=== PATIENT | female | born 1960 | race Caucasian/White ===

== ENCOUNTER 2020-02-13 08:41 | Emergency (ER) | payer BC ==
--- NOTE | 2020-02-13 09:21 | EDM.PDOC ---
ED HPI GENERAL MEDICAL PROBLEM - General Chief Complaint: Abdominal Pain Stated Complaint: ABDOMINAL PAIN Time Seen by Provider: 02/13/20 09:10 Source of Information: Reports: Patient, Family History Limitations: Reports: No Limitations - History of Present Illness INITIAL COMMENTS - FREE TEXT/NARRATIVE: 59-year-old female ate a large prime rib dinner last night, felt fine but overnight developed abdominal pain, bloating, bloody diarrhea and discomfort. No fevers or chills. She has no history of significant abdominal problems in fact has a colonoscopy scheduled for next week. She is getting a colonoscopy scheduled because over the past 1 to 2 months her stools have not been quite right. Onset: Unknown/Unsure (Symptoms started sometime overnight) Duration: Hour(s): (Abdominal cramping and bloody diarrhea for the past 8 hours) Location: Reports: Abdomen (Somewhat diffuse but mostly upper abdomen) Associated Symptoms: Reports: Malaise, Other (Nausea but no vomiting). Denies: Diaphoresis, Fever/Chills, Headaches, Shortness of Breath Abdomen Pain Score (Numeric/FACES): 8 - Related Data Allergies Allergy/AdvReac Type Severity Reaction Status Date / Time No Known Allergies Allergy Verified 02/13/20 08:59 Home Meds: Home Meds Aspirin [Low Dose Aspirin EC] 81 mg PO DAILY 02/13/20 [History] hydroCHLOROthiazide [Hydrochlorothiazide] 12.5 mg PO DAILY 02/13/20 [History] Past Medical History Cardiovascular History: Reports: Hypertension Gastrointestinal History: Reports: GERD, Hemorrhoids Genitourinary History: Reports: Renal Calculus Other Genitourinary History: kidney stone - 1997 [employer] History: Reports: Musculoskeletal History: Reports: Arthritis - Infectious Disease History Infectious Disease History: Reports: Chicken Pox - Past Surgical History HEENT Surgical History: Reports: Naso-Sinus Surgery, Tonsillectomy Female Surgical History: Reports: Lithotripsy/ESWL Social & Family History - Family History Family Medical History: No Pertinent Family History - Tobacco Use Tobacco Use Status *Q: Current Every Day Tobacco User Years of Tobacco use: 39 Packs/Tins Daily: 0.5 - Caffeine Use Caffeine Use: Reports: Coffee - Alcohol Use Days Per Week of Alcohol Use: 3 Number of Drinks Per Day: 2 Total Drinks Per Week: 6 - Recreational Drug Use Recreational Drug Use: No ED ROS GENERAL - Review of Systems Review Of Systems: See Below Constitutional: Reports: Malaise. Denies: Fever, Chills HEENT: Reports: No Symptoms Respiratory: Denies: Shortness of Breath Cardiovascular: Denies: Chest Pain GI/Abdominal: Reports: Abdominal Pain, Diarrhea, Hematochezia, Nausea. Denies: Melena, Vomiting Musculoskeletal: Reports: No Symptoms Skin: Reports: No Symptoms Neurological: Denies: Headache ED EXAM, GI/ABD - Physical Exam Exam: See Below Exam Limited By: No Limitations General Appearance: Alert, No Apparent Distress (Looks uncomfortable but not distressed) Eyes: Bilateral: Normal Appearance (Well-hydrated, no jaundice) Head: Atraumatic Respiratory/Chest: No Respiratory Distress, Lungs Clear Cardiovascular: Regular Rate, Rhythm. No: Tachycardia GI/Abdominal Exam: Normal Bowel Sounds (Very active bowel sounds), Soft, Tender (Some tenderness in the upper abdomen but no rebound or guarding) Extremities: Normal Inspection Neurological: Alert, Oriented Skin Exam: Warm, Dry. No: Cool, Cyanosis Course - Vital Signs Last Recorded V/S: Last Vital Signs Temp 98.8 F 02/13/20 09:00 Pulse 89 02/13/20 08:56 Resp 20 02/13/20 08:56 BP 121/92 H 02/13/20 08:56 Pulse Ox 97 02/13/20 08:56 - Orders/Labs/Meds Orders: Active Orders 24 hr Category Date Time Status CULTURE STOOL + SHIGATOX [RM] Stat Lab 02/13/20 09:39 Received Labs: Laboratory Tests 02/13/20 02/13/20 02/13/20 Range/Units 09:28 09:28 09:28 WBC 9.3 (4.5-11.0) K/uL RBC 5.10 (3.30-5.50) M/uL Hgb 15.9 H (12.0-15.0) g/dL Hct 47.8 (36.0-48.0) % MCV 94 (80-98) fL MCH 31 (27-31) pg MCHC 33 (32-36) % Plt Count 291 (150-400) K/uL Neut % (Auto) 66 (36-66) % Lymph % (Auto) 22 L (24-44) % [place] % (Auto) 10 H (2-6) % Eos % (Auto) 1 L (2-4) % Baso % (Auto) 1 (0-1) % Sodium 136 L (140-148) mmol/L Potassium 3.4 L (3.6-5.2) mmol/L Chloride 97 L (100-108) mmol/L Carbon Dioxide 32 (21-32) mmol/L Anion Gap 10.4 (5.0-14.0) mmol/L BUN 15 (7-18) mg/dL Creatinine 1.0 (0.6-1.0) mg/dL Est Cr Clr Drug Dosing 54.51 mL/min Estimated GFR (MDRD) 57 L (>60) Glucose 122 H (74-106) mg/dL Lactic Acid 1.8 (0.4-2.0) mmol/L Calcium 9.6 (8.5-10.1) mg/dL Total Bilirubin 0.4 (0.2-1.0) mg/dL AST 19 (15-37) U/L ALT 52 (12-78) U/L Alkaline Phosphatase 122 H (46-116) U/L Total Protein 7.8 (6.4-8.2) g/dL Albumin 3.7 (3.4-5.0) g/dL Globulin 4.1 H (2.3-3.5) g/dL Albumin/Globulin Ratio 0.9 L (1.2-2.2) Lipase 109 (73-393) U/L Meds: Medications Discontinued Medications Generic Name Dose Route Start Last Admin Trade Name Freq PRN Reason Stop Dose Admin Hydromorphone HCl 0.5 mg 02/13/20 09:49 02/13/20 10:01 Dilaudid IVPUSH 02/13/20 09:50 0.5 mg ONETIME ONE Administration Hydromorphone HCl 0.5 mg 02/13/20 11:05 02/13/20 11:15 Dilaudid IVPUSH 02/13/20 11:06 0.5 mg ONETIME ONE Administration Sodium Chloride 1,000 mls @ 1,000 mls/hr 02/13/20 09:30 02/13/20 09:33 Normal Saline IV 1,000 mls/hr ASDIRECTED JALEEL Administration Sodium Chloride 100 mls @ 3 mls/sec 02/13/20 10:45 02/13/20 11:06 Normal Saline IV 3 mls/sec ASDIRECTED JALEEL Administration Iopamidol 100 ml 02/13/20 10:39 02/13/20 11:06 Isovue-300 (61%) IV 02/13/20 10:40 100 ml ONETIME ONE Administration Sodium Chloride 10 ml 02/13/20 10:39 02/13/20 11:06 Saline Flush FLUSH 02/13/20 10:40 10 ml ONETIME ONE Administration - Re-Assessments/Exams Free Text/Narrative Re-Assessment/Exam: 02/13/20 09:33 Patient did have a small amount of bloody diarrhea while in the emergency room, this was collected for WBC, culture and C. difficile. Also merary a CBC, CMP and lactic acid and an IV started with normal saline hydration. 02/13/20 10:09 Patient needed 0.5 mg of IV Dilaudid for pain which gave her good relief. Labs returned to actually reassuring with normal white count, hemoglobin, normal lactic acid and lipase. The stool however did revealed many WBCs indicating an inflammatory source. A CT of the abdomen and pelvis with IV contrast was ordered. C. difficile is still pending. 02/13/20 12:21 IMPRESSION: 1. Findings suggestive of chronic colitis, with mild colonic wall thickening of the descending colon with trace pericolonic inflammation, suggesting a possible superimposed acute component. 2. Moderate hiatal hernia. 3. Hypoattenuating right hepatic lobe lesion, measuring 1.2 cm is incompletely characterized on this exam. Recommend comparison to prior exams if available. If no prior imaging is available for comparison recommend follow-up CT or MRI. C. difficile is negative Above findings were discussed with the patient. She will be placed on Cipro 500 mg twice daily for the next 10 days until culture results are available, and kept out of work for the next 3 days. Also given 10 doses of Percocet for extra pain control. Recommended just clear liquids for the next 48 hours and keep her appointment to set up the colonoscopy as planned. She can return sooner if worsening despite treatment. Departure - Departure Time of Disposition: 12:45 Disposition: Home, Self-Care 01 Clinical Impression: Colitis, Hematochezia Abdominal pain Qualifiers: Abdominal location: lower abdomen, unspecified Qualified Code(s): R10.30 - Lower abdominal pain, unspecified - Discharge Information Instructions: Colitis Referrals: PCP,None [Primary Care Provider] - Forms: ED Department Discharge Care Plan Goals: Take antibiotic twice daily, keep your follow-up appointments as scheduled and no work until at least of next week. Use stronger pain medication as needed, and stick with just clear liquids for the next 48 hours. Return if worsening despite treatment such as fever or increased pain. Sepsis Event Note (ED) - Evaluation Sepsis Screening Result: No Definite Risk - Focused Exam Vital Signs: Vital Signs Temp Pulse Resp BP Pulse Ox 02/13/20 09:00 98.8 F 02/13/20 08:56 98.8 F 89 20 121/92 H 97 - My Orders Last 24 Hours: My Active Orders 02/13/20 09:39 CULTURE STOOL + SHIGATOX [RM] Stat - Assessment/Plan Last 24 Hours: My Active Orders 02/13/20 09:39 CULTURE STOOL + SHIGATOX [RM] Stat
[2020-02-13] MEDS ORDERED: Sodium Chloride 0.9% 1,000 ML IV SCH (09:30)
[2020-02-13] MEDS ORDERED: HYDROmorphone 0.5 MG/0.5 ML Syringe IVPUSH ONE ×2 (09:49→11:05)
[2020-02-13] MEDS ORDERED: Iopamidol 612 MG/ML 500 ML Multipack Bottle IV ONE (10:39)
[2020-02-13] MEDS ORDERED: Sodium Chloride 0.9% 10 ML Syringe FLUSH ONE (10:39)
[2020-02-13] MEDS ORDERED: Sodium Chloride 0.9% 100 ML IV SCH (10:45)
--- NOTE | 2020-02-13 11:56 | CRLCT ---
INDICATION: Abdominal pain with bloody stool TECHNIQUE: CT abdomen and pelvis acquired with IV contrast. Approximately 100 cc of Isovue-300 contrast was administered intravenously. COMPARISON: None FINDINGS: The visualized portions of the lung bases are clear. A left breast implant is partially visualized. There is a moderate hiatal hernia. There is mild colonic thickening of the descending colon, with minimal surrounding fat stranding. Submucosal fat is seen diffusely throughout the colon. Negative for intraperitoneal free air fluid. The appendix is normal. There are a few scattered colonic diverticula. There is a 1.2 hypoattenuating lesion within the right hepatic, which is incompletely characterized. Additional subcentimeter hypoattenuating lesions are too small to fully characterize. The spleen, pancreas and adrenal glands are unremarkable. The kidneys enhance symmetrically without hydronephrosis. The bones are unremarkable. IMPRESSION: 1. Findings suggestive of chronic colitis, with mild colonic wall thickening of the descending colon with trace pericolonic inflammation, suggesting a possible superimposed acute component. 2. Moderate hiatal hernia. 3. Hypoattenuating right hepatic lobe lesion, measuring 1.2 cm is incompletely characterized on this exam. Recommend comparison to prior exams if available. If no prior imaging is available for comparison recommend follow-up CT or MRI. Dictated by Sofia Kendrick MD @ 02/13/2020 11:53:34 AM Please note that all CT scans at this facility use dose modulation, iterative reconstruction, and/or weight-based dosing when appropriate to reduce radiation dose to as low as reasonably achievable. Dictated by: Sofia Kendrick MD @ 02/13/2020 11:54:19 (Electronically Signed)
== END 2020-02-13 12:46 | disposition home or self-care (01) ==
LOC: JP.ED 08:41
DX: K52.9 Noninfective gastroenteritis and colitis, unspecified (principal); K92.1 Melena; I10 Essential (primary) hypertension; M19.90 Unspecified osteoarthritis, unspecified site; F17.210 Nicotine dependence, cigarettes, uncomplicated; Z79.899 Other long term (current) drug therapy; Z79.82 Long term (current) use of aspirin
CPT/HCPCS: 36415; 74177; 80053; 83605; 83690; 85025; 87046; 87493; 87899; 89055; 96374; 96376; 99285; J1170; J7030; Q9967; 99284

== ENCOUNTER 2020-08-20 16:56 | Emergency (ER) | payer BC ==
[2020-08-20] MEDS ORDERED: LORazepam 0.5 MG Tab PO ONE (18:44)
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
--- NOTE | 2020-08-21 12:46 | CR ---
Ribs 2V wo Chest Lt CLINICAL HISTORY: Left chest pain FINDINGS: There is no acute fracture within the ribs. No destructive changes are seen. There is no focal pleural thickening or obvious effusion. IMPRESSION: Negative left ribs.
== END 2020-08-20 20:27 | disposition home or self-care (01) ==
LOC: JP.ED 16:56
DX: S20.212A Contusion of left front wall of thorax, initial encounter (principal); F41.9 Anxiety disorder, unspecified; F45.8 Other somatoform disorders; N17.9 Acute kidney failure, unspecified; I10 Essential (primary) hypertension; M19.90 Unspecified osteoarthritis, unspecified site; Z72.0 Tobacco use; Z79.82 Long term (current) use of aspirin; Z79.899 Other long term (current) drug therapy; W50.0XXA Accidental hit or strike by another person, initial encounter
CPT/HCPCS: 36415; 71100; 80048; 84484; 85025; 93005; 99285; A9270

== ENCOUNTER 2020-09-04 08:48 | Emergency (ER) | payer OTHER, BC ==
--- NOTE | 2020-09-04 09:49 | EDM.PDOC ---
<Cindy Spangler - Last Filed: 09/04/20 09:42> ED HPI GENERAL MEDICAL PROBLEM - General Chief Complaint: General Stated Complaint: WORK COMP, CHEST TRAUMA Time Seen by Provider: 09/04/20 09:30 Source of Information: Reports: Patient, Family History Limitations: Reports: No Limitations - History of Present Illness INITIAL COMMENTS - FREE TEXT/NARRATIVE: 59 year old female with hx of anxiety, hyperventilation syndrome, and hypertension arrives with complaints of continued pain after traumatic chest injury at work. She reports that 08/15/20 she was elbowed in the left chest by a patient at her work who was falling. Pain in left chest since. She was seen in clinic and given a prednisone prescription to take for 5 days but reports that this has only made her symptoms worse. She report heart palpitations after taking prednisone so began "weening" herself off of the prednisone yesterday. She has not been working due to the pain but reports going to [employer] and dancing with that left arm causing exacerbation of the pain and did end up leaving the concert due to this. She reports that these symptoms are causing her so much stress that she is "suffering". She was given Ativan at her last visit that seemed to have helped her symptoms. Onset: Gradual Duration: Week(s):, Getting Worse Location: Reports: Chest Quality: Reports: Sharp Severity: Moderate Improves with: Reports: None Worsens with: Reports: None Context: Reports: Trauma Associated Symptoms: Reports: No Other Symptoms Left Chest Pain Score (Numeric/FACES): 5 - Related Data Allergies Allergy/AdvReac Type Severity Reaction Status Date / Time No Known Allergies Allergy Verified 08/20/20 17:47 Home Meds: Home Meds Aspirin [Low Dose Aspirin EC] 81 mg PO DAILY 02/13/20 [History] hydroCHLOROthiazide [Hydrochlorothiazide] 12.5 mg PO DAILY 02/13/20 [History] Metoprolol Succinate 50 mg PO DAILY 08/20/20 [History] Losartan [Cozaar] 25 mg PO DAILY 09/04/20 [History] Past Medical History Cardiovascular History: Reports: Hypertension Gastrointestinal History: Reports: GERD, Hemorrhoids Genitourinary History: Reports: Renal Calculus Other Genitourinary History: kidney stone - 1997 [employer] History: Reports: Musculoskeletal History: Reports: Arthritis - Infectious Disease History Infectious Disease History: Reports: Chicken Pox - Past Surgical History HEENT Surgical History: Reports: Naso-Sinus Surgery, Tonsillectomy Female Surgical History: Reports: Lithotripsy/ESWL Social & Family History - Family History Family Medical History: No Pertinent Family History - Tobacco Use Tobacco Use Status *Q: Current Every Day Tobacco User Years of Tobacco use: 40 Packs/Tins Daily: 0.5 - Caffeine Use Caffeine Use: Reports: None - Recreational Drug Use Recreational Drug Use: No ED ROS GENERAL - Review of Systems Review Of Systems: See Below Constitutional: Reports: No Symptoms. Denies: Fever, Chills, Malaise, Weakness HEENT: Reports: No Symptoms Respiratory: Reports: No Symptoms. Denies: Shortness of Breath, Wheezing, Cough Cardiovascular: Reports: Palpitations (palpitations started after 4 days of prednisone 40 mg daily. ). Denies: Chest Pain (chest wall pain on left lateral side post traumatic injury at work), Dyspnea on Exertion, Edema, Lightheadedness Endocrine: Reports: No Symptoms GI/Abdominal: Reports: No Symptoms. Denies: Abdominal Pain, Diarrhea, Nausea, Vomiting : Reports: No Symptoms Musculoskeletal: Reports: Other Skin: Reports: No Symptoms. Denies: Diaphoresis, Bruising, Rash, Wound Neurological: Reports: No Symptoms. Denies: Confusion, Dizziness, Headache, Numbness, Seizure, Weakness, Change in Speech, Gait Disturbance Psychiatric: Reports: No Symptoms Hematologic/Lymphatic: Reports: No Symptoms Immunologic: Reports: No Symptoms ED EXAM, GENERAL - Physical Exam Exam: See Below Free Text/Narrative:: Madison is resting on cart with at bedside. Her respirations are regular and non labored. skin is warm and dry. She is alert and oriented. Pain is reproducible with palpation left lower chest, laterally. No abdominal pain, no back pain, no other abnormalities on exam. Lungs are clear throughout. She is hyperverbal during assessment and does admit to a significant amount of anxiety over this incident. No pedal edema. No bruising noted to left chest/ back. Breast implant is intact. Exam Limited By: Other (anxiety) General Appearance: Alert, WD/WN, No Apparent Distress, Anxious Ears: Normal External Exam Nose: Normal Inspection, No Blood Throat/Mouth: Normal Inspection, Normal Voice, No Airway Compromise Head: Atraumatic. No: Facial Swelling, Facial Tenderness Neck: Normal Inspection, Non-Tender, Full Range of Motion Respiratory/Chest: No Respiratory Distress, Lungs Clear, Normal Breath Sounds. No: Respiratory Distress, Wheezing Cardiovascular: Normal Peripheral Pulses, Regular Rate, Rhythm, No Edema GI/Abdominal: Soft, Non-Tender. No: Distended, Guarding (Female) Exam: Deferred Rectal (Female) Exam: Deferred Back Exam: Normal Inspection, Full Range of Motion Extremities: Normal Inspection, Normal Range of Motion, Non-Tender, No Pedal Edema, Normal Capillary Refill Neurological: Alert, Oriented, Normal Cognition, Normal Gait, Normal Reflexes. No: Confused, Disoriented Psychiatric: Anxious Skin Exam: Warm, Dry, Intact, Normal Color, No Rash Lymphatic: No Adenopathy Course - Vital Signs Text/Narrative:: Discussed with this patient, the cause of her symptoms being her chest wall pain/ costochondritis, and anxiety. Patient agreeable to a week off of work and small ativan RX. Advised that she needs to establish care for follow up as this is her 3rd visit for this injury. Departure - Departure Disposition: Home, Self-Care 01 Condition: Good Clinical Impression: Pain, Costochondritis, Anxiety - Discharge Information Instructions: Costochondritis, [id number] Referrals: PCP,None [Primary Care Provider] - Forms: ED Department Discharge Additional Instructions: Your pain today is not due to any cardiac problems. You have costochondritis. Please stop taking the prednisone and vistaril. Continue to take the medications for your blood pressure. Ativan RX sent to [facility] medication machine. Please start taking these as directed, 10 tablets total. Establish care with a primary provider to follow your medications and ensure you are improving over the next week. 1 more week off of work. Return if you have any new or worsening chest pain, shortness of breath, or other concerning symptoms. Sepsis Event Note (ED) - Evaluation Sepsis Screening Result: No Definite Risk <Maximus Kelley - Last Filed: 09/05/20 07:39> Course - Vital Signs Last Recorded V/S: Last Vital Signs Temp 97.2 F 09/04/20 09:22 Pulse 79 09/04/20 09:22 Resp 20 09/04/20 09:22 BP 121/83 09/04/20 09:22 Pulse Ox 98 09/04/20 09:22 Departure - Departure Time of Disposition: 09:58 Attestation - Student - Attestation Statement Attestation Statement: I personally performed or re-performed the physical examination and medical decision making. I have verified all student documentation or findings, including history, physical exam and/or medical decision making.
== END 2020-09-04 09:58 | disposition home or self-care (01) ==
LOC: JP.ED 08:48
DX: M94.0 Chondrocostal junction syndrome [Tietze] (principal); F41.9 Anxiety disorder, unspecified; I10 Essential (primary) hypertension; M19.90 Unspecified osteoarthritis, unspecified site; Z72.0 Tobacco use; Z79.82 Long term (current) use of aspirin; Z79.899 Other long term (current) drug therapy
CPT/HCPCS: 99284